=== PATIENT | female | born 1940 | race Caucasian/White ===

== ENCOUNTER → 2017-08-21 | Day surgery (SDC) | payer OTHER ==
[~2017-08-21] VITALS: Ht 185.4 cm; Wt 65.3 kg
[~2017-08-21] MED LIST: ACIDOPHILUS1 EACH PO; ALIGN4 M1 PO; ASPIRIN EC325 M2 PO; ATROVENT 0.02%2.5 ML INH; CHOLESTYRAMINE L4 GM PO; CLONAZEPAM0.5 MG PO; COLACE100 M1 PO; DESITIN DIAPER28 GM TOP; DIFICID PO; DILAUDID2 M1 PO; ENTOCORT EC3 M1 PO; FAMOTIDINE20 M1 PO; KLONOPIN0.5 M1 PO; LASIX20 MG PO; LIPITOR10 M1 PO; LOPRESSOR 12.12.5 MG PO; MELATONIN5 M7 PO; MIRALAX17 G1 PO; MOXIFLOXACIN H400 M1 PO; Nasal NAS; OXYCODONE HCL5 M1 PO; PEPCID20 M1 PO; POTASSIUM CHLO10 ME2 PO; POTASSIUM CHLO10 ME4 PO; PREDNISONE 20MG20 MG PO; PREVALITE PACKET4 GM PO; PRILOSEC20 M1 PO; RW; Robitussin PO; SENNA S TABLET1 EACH PO; TOPROL XL50 M1 PO; TUMS500 MG PO; TYLENOL EXTRA500 M2 PO; VANCOMYCIN HCL125 MG PO; VITAMIN A & D56.7 GM TOP; VITAMIN D1000 IU PO; Vancomycin HCl PO
--- NOTE | 2017-08-23 11:52 | Operative Report ---
Operative/Inv Procedure Report Surgery Date: 08/21/17 Name of Procedure: Laparoscopic repair of left inguinal hernia, TEP, tackess with 3-D max medium mesh Pre-Operative Diagnosis: Left inguinal hernia and left femoral hernia Post-Operative Diagnosis: Left inguinal hernia, indirect with lateral abdominal wall hernia, ? spigelian Estimated Blood Loss: none Surgeon/Sewer And Drain Technician: Mary VILLANUEVA,Charles Le PA-C Anesthesia: general endotracheal tube IV Fluids: 1 L crystalloid Implants: 3-D Max medium mesh Drains: None Specimens: None Complications: None Condition: Excellent stable Operative Indication: Marleni is a 77-year-old female with a left inguinal bulge which on exam suggested 2 foci of herniation, one at the internal ring and the other most likely femoral both of which are reducible. She presents for a laparoscopic repair. She has a history of significant C. difficile colitis and she chooses to forego any antibiotic Prophylaxis perioperative. Operative/Procedure Note Note: The patient is taken to the operating room and placed on the operating table in supine position. Following an awake timeout she underwent induction of general endotracheal anesthesia uneventfully, had Venodyne boots in place and pumping with her right arm tucked by her side and left arm extended. She had been marked in the preop holding area. The abdomen was then prepped widely with ChloraPrep after clipping the pubic area. The lr were been visible in the field as a draped usual sterile fashion. She was placed in slight Trendelenburg position then local anesthetic infiltrated in the left periumbilical area where a curvilinear incision was made and carried down to the fascia of the rectus. The rectus was incised paramedian short distance to expose the medial edge of the left rectus muscle which was retracted laterally to expose the posterior sheath. The dissecting balloon was then delivered down to the left pubic tubercle and pumped up 5. 10 mm 0 scope was inserted and I could see the usual landmarks of the epigastric vessels. There was no evidence of a direct hernia at this point. I pumped up to a total of 20 pumps and then replaced the dissecting balloon with the structural balloon and pneumo-preperitoneum was achieved. 25 mm working ports were placed in the midline after infiltrating local anesthetic the lowest at 2 finger breaths from the symphysis and the other at the tip of this structural balloon. Now I used the cautery to take down some filmy attachments on the back of the symphysis which I could see well. I carried this dissection laterally behind the ramus. There were some attachments of some preperitoneal fat up towards the direct space but these were filmy and came away easily and were not associated with any direct hernia. I could now see the venous pulsation well. I then turned attention high and lateral and took down small amount of posterior fascia to help open the lateral space. Here I could see the peritoneum well and dissected it off of the lateral fat preserving some of the fibrofatty tissue on the sidewall to protect the lateral nerves. There seemed to be some excess bulky retroperitoneal fat as we worked inferiorly and this along with the peritoneum was pulled up lateral to the internal ring. With some traction on the peritoneum and this fat I could see there was a herniation in this area but again quite lateral and not typical of a indirect hernia. More medially I could see that indirect space and could see there was a hernia there as well. I looked back over to the femoral space and could see there was no hernia through that area so I began to realize that the 2 hernias I was appreciating on physical exam were an indirect hernia and this unusual lateral hernia. This lateral hernia was really close to the ASIS and seemed to lateral to be a spigelian hernia but she had no prior historyof incisions in this area. With some traction now on the peritoneum and preperitoneal fat I reduced herniation through this defect and swept all this away from the defect so as to allow it to be covered by the tail of the mesh ultimately this also allowed for better exposure of the lateral musculature which remained covered by some fibrofatty tissue now that the retroperitoneal fat pulled up to this unusual hernia had been dissected away. I now turned attention to the indirect hernia where there was both a hernia sac and some adherent preperitoneal fat all of which reduced nicely mostly with just traction and a small amount of cautery up in the canal to free both the sac and fat from any attachments there. Once this was achieved I could see the round ligament well and was able to dissect the peritoneum off the round ligament without having to divide the round ligament. I carried this dissection below the point where the round ligament deviated medially. There were still were some filmy attachments medial to the epigastrics which I took down with the cautery carefully being sure we were not pulling up on the iliac vessels and this really opened up the gutter between the direct and indirect spaces nicely and confirm that there was no femoral hernia. A 3-D Max medium left mesh was now selected and placed into the space where it overlapped the symphysis medially and the tail satin the lateral space lateral to the lateral hernia. The inferior edge set above the level of the peritoneum which I dissected off of the round ligament. We now released the pneumo under direct vision watching to be sure that all the previously dissected peritoneum and preperitoneal fat rolled up within the confines of the mesh and there was no buckling or folding of the mesh and no penetration around overrun to the mesh by the fat or peritoneum.10 mL of local anesthetic was infiltrated in the preperitoneal space and the ports all removed. The fascia at the M at the umbilicus was closed after a released a moderate pneumoperitoneum through the posterior sheath. The posterior sheath was closed with [id number] suture of 0 Vicryl and then the anterior fascia closed with 2 [id number] sutures of 0 Vicryl. Interrupted 3-0 Vicryl sutures were used on the subcutaneous tissue followed by 4-0 Monocryl running running subcuticular skin closures. Steri-Strips 4 x 4's and OpSite were placed. The patient tolerated the procedure well was taken to the recovery room in satisfactory condition with all sponge needle injury counts Bulgarian correct 2 completion of the case. 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 Discharge Disposition: PACU
== END ==
LOC: STS 02:34
DX: K40.90 Unilateral inguinal hernia, without obstruction or gangrene, not specified as recurrent (principal); K46.9 Unspecified abdominal hernia without obstruction or gangrene; I10 Essential (primary) hypertension; K21.9 Gastro-esophageal reflux disease without esophagitis; Z86.19 Personal history of other infectious and parasitic diseases; I48.0 Paroxysmal atrial fibrillation
CPT/HCPCS: C1781; C9399; J0131; J2250; J3490